=== PATIENT | female | born 1955 | race Caucasian/White ===

== ENCOUNTER 2017-05-07 18:22 | Observation (INO) ==
[2017-05-07] MEDS ORDERED: Ondansetron 4 MG/2 ML VIAL IVP ONE (18:42)
[2017-05-07] MEDS ORDERED: 0.9 % Sodium Chloride 1,000 ML IVC ONE (18:42)
[2017-05-07] MEDS ORDERED: *HR* Morphine 2 MG/ML SYRINGE IVP ONE (18:42)
--- NOTE | 2017-05-07 18:48 | Emergency Department Note ---
Disposition Clinical Impression: ALS (amyotrophic lateral sclerosis), Hyperbilirubinemia Acute appendicitis Qualifiers: Acute appendicitis type: unspecified acute appendicitis type Qualified Code(s) : K35.80 - Unspecified acute appendicitis Disposition: Admitted As Inpatient Condition: Fair Referrals: NONE,PCP [Non-Partnered Physician] - Forms: Work/School Release, ED Satisfaction Letter Time of Disposition: 19:50 Abdominal Pain HPI - General Chief Complaint: ED Abdominal Pain Stated Complaint: abd pain/abnormal CT Time Seen by Provider: 05/07/17 18:35 Source: patient Mode of arrival: ambulatory Limitations: no limitations Nursing Notes Reviewed: Yes Vital Signs Reviewed: Yes - History of Present Illness HPI Narrative: 61-year-old female history of ALS, presents with periumbilical and right lower quadrant pain for the last 4 days. The pain is 7 out of 10, periumbilical with radiation to the right lower quadrant. Associated with some nausea, she does have a feeding tube, but her last meal was a hamburger about 2-1/2 hours prior to ED arrival. Patient was actually evaluated in outpatient setting today, she saw her primary care physician Dr Rooney, ordered an outpatient CT scan with oral contrast, this showed an acute uncomplicated appendicitis. Patient denies blood thinners. Denies any chest pain shortness of breath has had intermittent chills but no fevers. Pt Subjective Complaint: abdominal pain Onset (ago): day(s) (4) Consistency: intermittent Location: periumbilical, RLQ Pain Severity: mild, moderate Pain Scale: 7 Quality: cramping, aching Radiation: none Improves with: nothing Worsens with: nothing Associated symptoms: Reports: nausea. Denies: vomiting, diarrhea, fever, chills , dysuria, hematemesis, hematochezia - Related Data Allergies Allergy/AdvReac Type Severity Reaction Status Date / Time No Known Allergies Allergy Verified 05/07/17 18:29 All systems ED: reviewed and negative except as stated. Review of Systems: As Per HPI Constitutional: Reports: as per HPI, chills. Denies: fever Eyes: Denies: eye pain ENT ED: Denies: ear pain Cardiovascular: Denies: chest pain Respiratory: Denies: cough Gastrointestinal: Reports: as per HPI, abdominal pain, nausea. Denies: vomiting , diarrhea, hematemesis, melena, hematochezia Genitourinary: Denies: urgency, dysuria Musculoskeletal: Denies: back pain Neurological: Denies: headache Abdominal Pain PMH - Past Medical History Medical history: Reports: cancer, kidney stones, other Female Surgical History: Reports: cholecystectomy, hysterectomy - Social History Smoking status: Never smoker Alcohol use: Reports: none Drug use: Reports: none Physical Exam Constitutional: NAD, vital signs reviewed and wnl Eyes: PERRLA, sclera anicteric Neck: normal inspection, neck is supple Resp: CTA bilaterally, no resp distress CV: RRR, no m/g/r GI: +PEG tube and left upper quadrant, mild abdominal tenderness to palpation periumbilical and right lower quadrant, positive McBurney's point tenderness, negative Rovsing sign. No guarding or rigidity. Back: normal inspection, Negative CVA bilaterally Neuro: A&O3, CNII-XII grossly intact, SOLOMON, slow speech 2/2 ALS MSK: no gross deformities, normal ROM UE and LE Skin: on limited exam, skin intact with no rashes or lesions - General Limitations: no limitations General appearance: in no apparent distress Course Course Narrative: 61-year-old female with right lower quadrant abdominal pain, CT scan positive for acute appendicitis, getting lab work, nothing by mouth, IV fluids antiemetics and analgesics, plan to consult surgery. - Reevaluation(s) Reevaluation #1: I spoke with Dr. Dodge, plan is to admit the patient to the surgical service, noted mild elevated total bilirubin, otherwise no elevation in leukocytosis, patient will have appendectomy tomorrow, nothing by mouth after midnight, started empirically on Zosyn antibiotic. Time: 19:46 Vital Signs Temperature 98 F 05/07/17 18:28 Pulse Rate 90 05/07/17 18:28 Respiratory Rate 18 05/07/17 18:28 Blood Pressure 134/86 05/07/17 18:28 O2 Sat by Pulse Oximetry 95 05/07/17 18:28 Temperature 98 F 05/07/17 18:28 Pulse Rate 87 05/07/17 19:56 Respiratory Rate 18 05/07/17 19:56 Blood Pressure 135/82 05/07/17 19:56 O2 Sat by Pulse Oximetry 92 05/07/17 19:56 Oxygen Delivery Oxygen Delivery Room Air Abdominal Pain - MDM Narrative Medical decision making narrative: 61-year-old female with history of ALS, presents with right lower quadrant pain , CT scan outpatient shows uncomplicated appendicitis, started on Zosyn, admitted to Dr. Dodge for definitive management, Patient hemodynamically stable at the time of ED disposition. - Differential Diagnosis Differential Diagnosis: Likely: acute appendicitis, diverticulitis, diverticulosis - Medical Records Medical records reviewed: Yes I reviewed the patient's medical records. - Lab Data Lab results reviewed: Yes I reviewed the patient's lab results. Lab results narrative: Lab Results 05/07/17 05/07/17 05/07/17 Range/Units 19:05 19:05 19:05 WBC 8.1 (4.3-11.1) K/mcL RBC 4.35 (3.82-4.97) M/mcL Hgb 12.8 (11.5-15.4) g/dL Hct 38.2 (35.3-44.9) % MCV 87.8 (83.0-100.0) fL MCH 29.4 (28.0-33.3) pg MCHC 33.5 (31.6-35.5) g/dL RDW 13.4 (11.5-14.5) % Plt Count 209 (140-400) K/mcL MPV 10.1 (9.4-12.4) fL Immature Gran % 0.5 (0-4) % Seg Neutrophils % 64.9 % Lymphocytes % 26.8 % Monocytes % 5.6 % Eosinophils % 2.0 % Basophils % 0.2 % Neutrophils # 5.2 (1.6-8.9) K/mcL Lymphocytes # 2.2 (0.6-4.6) K/mcL Monocytes # 0.5 (0.0-1.3) K/mcL Eosinophils # 0.2 (0.0-0.6) K/mcL Basophils # 0.0 (0.0-0.2) K/mcL PT 12.5 H (9.4-12.1) Seconds INR 1.2 Sodium 139 (136-145) mEq/L Potassium 3.8 (3.5-4.5) mEq/L Chloride 104 (98-109) mEq/L Carbon Dioxide 26 (19-29) mEq/L BUN 16 (7-20) mg/dL Creatinine 0.75 (0.57-1.11) mg/dL Est GFR ( Amer) > 60 (> 60) Est GFR (Non-Af Amer) > 60 (> 60) BUN/Creatinine Ratio 21 (6-26) Glucose 108 H (70-99) mg/dL Calculated Osmolality 290 (280-300) Calcium 9.7 (8.6-10.8) mg/dL Total Bilirubin 2.6 H (0.2-1.2) mg/dL Direct Bilirubin 0.8 H (0.0-0.5) mg/dL Indirect Bilirubin 1.8 H (0.0-1.2) mg/dL AST 21 (5-34) Units/L ALT 23 (0-55) Units/L Alkaline Phosphatase 119 (38-126) Units/L Serum Total Protein 7.6 (6.0-8.3) g/dL Albumin 3.8 (3.5-5.0) g/dL Globulin 3.8 H (2.4-3.5) g/dL Albumin/Globulin Ratio 1.0 L (1.1-2.2) Result diagrams: 05/07/17 19:05 05/07/17 19:05 Lab Results 05/07/17 05/07/17 05/07/17 Range/Units 19:05 19:05 19:05 WBC 8.1 (4.3-11.1) K/mcL RBC 4.35 (3.82-4.97) M/mcL Hgb 12.8 (11.5-15.4) g/dL Hct 38.2 (35.3-44.9) % MCV 87.8 (83.0-100.0) fL MCH 29.4 (28.0-33.3) pg MCHC 33.5 (31.6-35.5) g/dL RDW 13.4 (11.5-14.5) % Plt Count 209 (140-400) K/mcL MPV 10.1 (9.4-12.4) fL Immature Gran % 0.5 (0-4) % Seg Neutrophils % 64.9 % Lymphocytes % 26.8 % Monocytes % 5.6 % Eosinophils % 2.0 % Basophils % 0.2 % Neutrophils # 5.2 (1.6-8.9) K/mcL Lymphocytes # 2.2 (0.6-4.6) K/mcL Monocytes # 0.5 (0.0-1.3) K/mcL Eosinophils # 0.2 (0.0-0.6) K/mcL Basophils # 0.0 (0.0-0.2) K/mcL PT 12.5 H (9.4-12.1) Seconds INR 1.2 Sodium 139 (136-145) mEq/L Potassium 3.8 (3.5-4.5) mEq/L Chloride 104 (98-109) mEq/L Carbon Dioxide 26 (19-29) mEq/L BUN 16 (7-20) mg/dL Creatinine 0.75 (0.57-1.11) mg/dL Est GFR ( Amer) > 60 (> 60) Est GFR (Non-Af Amer) > 60 (> 60) BUN/Creatinine Ratio 21 (6-26) Glucose 108 H (70-99) mg/dL Calculated Osmolality 290 (280-300) Calcium 9.7 (8.6-10.8) mg/dL Total Bilirubin 2.6 H (0.2-1.2) mg/dL Direct Bilirubin 0.8 H (0.0-0.5) mg/dL Indirect Bilirubin 1.8 H (0.0-1.2) mg/dL AST 21 (5-34) Units/L ALT 23 (0-55) Units/L Alkaline Phosphatase 119 (38-126) Units/L Serum Total Protein 7.6 (6.0-8.3) g/dL Albumin 3.8 (3.5-5.0) g/dL Globulin 3.8 H (2.4-3.5) g/dL Albumin/Globulin Ratio 1.0 L (1.1-2.2) - Radiology Data Radiology results reviewed: Yes I reviewed the patient's radiology results. - EKG Data EKG attestation: Yes I reviewed and interpreted this EKG. EKG shows normal: sinus rhythm Rate: normal (84 bpm CO 168 QRS 88 QTC 4:[address] segment elevations or depressions.) [place]/QRS: normal Interpretation: normal EKG - Core Measures AMI Core Measures Followed: No Measure Exclusions: not indicated
[2017-05-07 19:17] LABS: Basophils % 0.2 %; Eosinophils # 0.2 K/mcL (0.0-0.6); Hematocrit 38.2 % (35.3-44.9); Hemoglobin 12.8 g/dL (11.5-15.4); Immature Granulocytes % 0.5 % (0-4); Lymphocytes # 2.2 K/mcL (0.6-4.6); Lymphocytes % 26.8 %; Mean Corpuscular HGB Conc 33.5 g/dL (31.6-35.5); Mean Corpuscular Hemoglobin 29.4 pg (28.0-33.3); Mean Corpuscular Volume 87.8 fL (83.0-100.0); Mean Platelet Volume 10.1 fL (9.4-12.4); Monocytes # 0.5 K/mcL (0.0-1.3); Monocytes % 5.6 %; Neutrophils # 5.2 K/mcL (1.6-8.9); Platelet Count 209 K/mcL (140-400); Red Blood Count 4.35 M/mcL (3.82-4.97); Red Cell Distribution Width 13.4 % (11.5-14.5); Segmented Neutrophils % 64.9 %
[2017-05-07 19:21] LABS: INR 1.2; Prothrombin Time 12.5 Seconds (9.4-12.1)
[2017-05-07 19:30] LABS: Alanine Aminotransferase 23 Units/L (0-55); Albumin 3.8 g/dL (3.5-5.0); Alkaline Phosphatase 119 Units/L (38-126); Aspartate Amino Transferase 21 Units/L (5-34); BUN/Creatinine Ratio 21 (6-26); Bilirubin,Direct 0.8 mg/dL (0.0-0.5); Bilirubin,Indirect 1.8 mg/dL (0.0-1.2); Blood Urea Nitrogen 16 mg/dL (7-20); Calcium 9.7 mg/dL (8.6-10.8); Carbon Dioxide 26 mEq/L (19-29); Chloride 104 mEq/L (98-109); Globulin 3.8 g/dL (2.4-3.5); Glucose 108 mg/dL (70-99); Osmolality,Calculated 290 (280-300); Potassium 3.8 mEq/L (3.5-4.5); Sodium 139 mEq/L (136-145); Total Protein 7.6 g/dL (6.0-8.3); eGFR For African Americans > 60 (> 60); eGFR For Non-African Americans > 60 (> 60)
[2017-05-07 19:31] LABS: Bilirubin,Total 2.6 mg/dL (0.2-1.2)
[2017-05-07] MEDS ORDERED: Piperacillin/Tazobactam 3.375 GM in D5% in Water (Mini-Bag+) 100 ML IVPB ONE (19:36)
[2017-05-07 20:04] LABS: Bilirubin,Urine Negative (Negative); Blood,Urine Large (Negative); Clarity,Urine Clear (Clear); Color,Urine Yellow (Yellow); Glucose,Urine (UA) Normal (Normal); Ketones,Urine Negative (Negative); Leukocyte Esterase,Urine Trace (Negative); Nitrite,Urine Negative (Negative); PH,Urine 5.5 pH Units (5.0-8.0); Protein,Urine Negative (Neg-Trace); Specific Gravity,Urine > 1.030 (1.010-1.025); Urobilinogen,Urine Normal (Normal)
[2017-05-07 20:06] LABS: Bacteria,Urine None Seen per hpf (None-Few); Hyaline Casts,Urine None Seen per lpf (None-Few); Squamous Epithelial Cell,Urine Moderate per lpf (None-Few)
[2017-05-07] MEDS ORDERED: Ondansetron 4 MG/2 ML VIAL IVP PRN (22:29)
[2017-05-07] MEDS ORDERED: Baclofen 10 MG TABLET PO PRN (22:37)
[2017-05-07] MEDS: 0.9 % Sodium Chloride 1,000 ML IVC SCH (23:08)
[2017-05-08] MEDS: Piperacillin/Tazobactam 3.375 GM in D5% in Water (Mini-Bag+) 100 ML IVPB SCH ×3 (04:02→20:13)
--- NOTE | 2017-05-08 07:07 | General Surg History&Physical ---
<TarunMichelleTen - Last Filed: 05/08/17 07:14> Date of Encounter: 05/08/17 Time of Encounter: 06:45 Assessment and Plan (1) Acute appendicitis Current Visit: Yes Status: Acute Imaging and clinical picture are consistent with acute appendicitis. Plan for OR this morning for laparoscopic appendectomy with possible open. Consent was signed. Risks and benefits were discussed. All questions were answered. Understanding was verified. Qualifiers: Acute appendicitis type: unspecified acute appendicitis type Qualified Code (s): K35.80 - Unspecified acute appendicitis History of Present Illness Chief complaint: abdominal pain HPI: Ms. Schwartz is a 61 year old female with PMH of ALS who presents with 3-4 days of abdominal pain. It initially started 2 weeks ago, lasting for 2-3 days before subsiding. It returned on Friday worse than before. She rates the pain as 7/10 in intensity, constant in timing, and "like a punch" in quality. She endorses no exacerbating or remitting factors. She has never had pain like this before. She admits to chills and nausea. She denies fever, anorexia, or a lack of bowel movements. She has had multiple surgeries in the past, including hysterectomy, cholecystectomy, and feeding tube placement. CT abd/pelv showed acute, uncomplicated appendicitis. Past Med Surg Social Fam HX - Past Medical History Medical history: cancer, kidney stones, other Psychiatric history: no psych history - Past Surgical History Surgical History: cholecystectomy, hysterectomy, orthopedic, other - Social History Smoking Status: Never smoker Smokeless Tobacco Status: No Alcohol use: none Drug use: none - Family History Mother Living Status: Still Living Hx Family Psychosocial Disorders: Yes (dementia) Father Living Status: Still Living Hx Family Respiratory Disorders: Yes (COPD) Medications and Allergies Baclofen [Lioresal] 10 mg PO HS PRN 05/07/17 [History] Docusate [Colace] 100 mg PO DAILY 05/07/17 [History] Metoprolol XL (24 HR) Succ [Toprol XL] 12.5 mg PO DAILY 05/07/17 [History] Oxybutynin [Ditropan] 5 mg PO BID 05/07/17 [History] Riluzole [Rilutek] 50 mg PO BID 05/07/17 [History] Allergies No Known Allergies Allergy (Verified 05/07/17 18:29) Review of Systems All systems PM: A 10-system review of systems was performed and is negative for pertinent findings except as documented above in the HPI. - Constitutional chills, no anorexia, no fever(s) - Gastrointestinal abdominal pain, nausea, no bloating, no vomiting General Surgery Exam Initial Vital Signs Temp Pulse Resp BP Pulse Ox 98 F 90 18 134/86 95 05/07/17 18:28 05/07/17 18:28 05/07/17 18:28 05/07/17 18:28 05/07/17 18:28 - General physical appearance well developed, well nourished, no distress, obese - Eyes normal ocular movement - ENT atraumatic, normocephalic - Neck trachea midline - Respiratory normal expansion, normal respiratory effort, clear to auscultation - Cardiovascular Cardiovascular exam: Present: RRR - Abdomen Abdomen general surgery: Present: soft, tender. Absent: bowel sounds present, distended, guarding, rebound, peritoneal Abdominal Tenderness: Present: RLQ - Neurologic Present: other (difficulty speaking secondary to ALS) - Musculoskeletal Present: normal posture - Psychiatric Psychiatric general surgery: Present: appropriate, memory intact Results - Labs 05/07/17 19:05 05/07/17 19:05 Abnormal lab results PT 12.5 Seconds (9.4-12.1) H 05/07/17 19:05 Glucose 108 mg/dL (70-99) H 05/07/17 19:05 Total Bilirubin 2.6 mg/dL (0.2-1.2) H 05/07/17 19:05 Direct Bilirubin 0.8 mg/dL (0.0-0.5) H 05/07/17 19:05 Indirect Bilirubin 1.8 mg/dL (0.0-1.2) H 05/07/17 19:05 Globulin 3.8 g/dL (2.4-3.5) H 05/07/17 19:05 Albumin/Globulin Ratio 1.0 (1.1-2.2) L 05/07/17 19:05 Ur Specific [place] > 1.030 (1.010-1.025) H 05/07/17 19:55 Urine Blood Large (Negative) H 05/07/17 19:55 Ur Leukocyte Esterase Trace (Negative) H 05/07/17 19:55 Urine Microscopic RBC 5-15 per hpf (0-3) H 05/07/17 19:55 Urine Microscopic WBC 5-15 per hpf (0-3) H 05/07/17 19:55 Ur Squamous Epith Cells Moderate per lpf (None-Few) H 05/07/17 19:55 Ur Culture Indicated? YES (NO) A 05/07/17 19:55 All other labs normal. - Imaging CT scan - abdomen: report reviewed (IMPRESSION: 1. Uncomplicated acute appendicitis. 2. Trace free fluid in the pelvis is likely reactive. 3. Indeterminate 1.0 cm x 0.9 cm hypodense lesion likely representing a complicated cyst in the interpolar region of the left kidney. Recommend further evaluation with renal protocol MRI on a nonemergent basis. D/T: 2016 15:01:33 / Igor Mantilla MD / Igor Mantilla MD Interpreting Provider: Igor Mantilla MD ), image reviewed CT scan - pelvis: report reviewed, image reviewed <Karlie Dodge - Last Filed: 05/08/17 07:36> Date of Encounter: 05/08/17 Time of Encounter: 07:28 Assessment and Plan (1) HTN (hypertension) Current Visit: Yes Status: Acute The assessment and plan as outlined above was discussed with the patient and/or family members who expressed understanding and agreement. All questions were answered. continue home medication, controlled Qualifiers: Hypertension type: essential hypertension Qualified Code(s): I10 - Essential (primary) hypertension (2) ALS (amyotrophic lateral sclerosis) Current Visit: Yes Status: Acute The assessment and plan as outlined above was discussed with the patient and/or family members who expressed understanding and agreement. All questions were answered. continue home medication discussed with patient that she may need to go to ICU intubated after surgery due to weakness until she regains strength to be extubated after surgery, she understands (3) Acute appendicitis Current Visit: Yes Status: Acute The assessment and plan as outlined above was discussed with the patient and/or family members who expressed understanding and agreement. All questions were answered. Qualifiers: Acute appendicitis type: unspecified acute appendicitis type Qualified Code (s): K35.80 - Unspecified acute appendicitis History of Present Illness HPI: Ms. Schwartz is a 61 year old female with medical history of ALS, hypertension and taccycardia. She began having mid abdominal pain this past friday (~4-5 days ago) which was initially dull. The pain has radiated and is now in her RLQ. The pain is sharp. SHe has had nausea but without emesis. She denies diarrhea or dysuria. No fever or night sweats but had chills. She presented to ED and and CT was done showing acute appendicitis, wbc 8.1. Past Med Surg Social Fam HX - Past Medical History Source: patient Medical history: hypertension, kidney stones, other (ALS) Psychiatric history: no psych history - Past Surgical History Surgical History: cholecystectomy, hysterectomy, other (PEG) Review of Systems All systems PM: A 10-system review of systems was performed and is negative for pertinent findings except as documented above in the HPI. General Surgery Exam Initial Vital Signs Temp Pulse Resp BP Pulse Ox 98 F 90 18 134/86 95 05/07/17 18:28 05/07/17 18:28 05/07/17 18:28 05/07/17 18:28 05/07/17 18:28 - General physical appearance well developed, well nourished, no distress, other (generalized weakness due to ALS) - Eyes PERRL, normal ocular movement - ENT atraumatic, normocephalic - Neck trachea midline - Respiratory normal expansion, clear to auscultation - Cardiovascular Cardiovascular exam: Present: RRR, no murmurs/rubs/gallops - Abdomen Abdomen general surgery: Present: bowel sounds present, soft, tender. Absent: guarding, rebound Abdominal Tenderness: Present: RLQ - Integumentary Integumentary general surgery: Present: warm and dry - Neurologic Present: CN 2-12 grossly intact, other - Musculoskeletal Present: other (generalized weakness) - Psychiatric Psychiatric general surgery: Present: A&Ox3 Results - Labs 05/07/17 19:05 05/07/17 19:05 Abnormal lab results PT 12.5 Seconds (9.4-12.1) H 05/07/17 19:05 Glucose 108 mg/dL (70-99) H 05/07/17 19:05 Total Bilirubin 2.6 mg/dL (0.2-1.2) H 05/07/17 19:05 Direct Bilirubin 0.8 mg/dL (0.0-0.5) H 05/07/17 19:05 Indirect Bilirubin 1.8 mg/dL (0.0-1.2) H 05/07/17 19:05 Globulin 3.8 g/dL (2.4-3.5) H 05/07/17 19:05 Albumin/Globulin Ratio 1.0 (1.1-2.2) L 05/07/17 19:05 Ur Specific [place] > 1.030 (1.010-1.025) H 05/07/17 19:55 Urine Blood Large (Negative) H 05/07/17 19:55 Ur Leukocyte Esterase Trace (Negative) H 05/07/17 19:55 Urine Microscopic RBC 5-15 per hpf (0-3) H 05/07/17 19:55 Urine Microscopic WBC 5-15 per hpf (0-3) H 05/07/17 19:55 Ur Squamous Epith Cells Moderate per lpf (None-Few) H 05/07/17 19:55 Ur Culture Indicated? YES (NO) A 05/07/17 19:55 All other labs normal. - Imaging CT scan - abdomen: report reviewed, image reviewed CT scan - pelvis: report reviewed, image reviewed - Attending Attestation I examined this patient and my medical decision-making was reviewed with the Resident Physician. I agree with the documented findings, disposition and treatment plan as described except to the extent set forth below. acute appendicitis
--- NOTE | 2017-05-08 07:38 | Anesthesia Evaluation PreOp ---
Date of Encounter: 05/08/17 Time of Encounter: 07:36 - Past History Planned Operation: Lap appendectomy Cardiac History: HTN Pulmonary History: GABE Dx (Bipap) TELEPHONE CLERK TELEGRAPH OFFICE History: Other (ALS - weakness involving hands, feets, and bulbar muscles) Other Medical History: Denies Any Significant HX Anesthesia History: No Prior Anesthetic Complications Alcohol Use: none Drug use: none Medications and Allergies Baclofen [Lioresal] 10 mg PO HS PRN 05/07/17 [History] Docusate [Colace] 100 mg PO DAILY 05/07/17 [History] Metoprolol XL (24 HR) Succ [Toprol XL] 12.5 mg PO DAILY 05/07/17 [History] Oxybutynin [Ditropan] 5 mg PO BID 05/07/17 [History] Riluzole [Rilutek] 50 mg PO BID 05/07/17 [History] Allergies No Known Allergies Allergy (Verified 05/07/17 18:29) - Meds/Allergy Pre-op Review Medications Reviewed: Yes Allergies Reviewed: Yes Beta Blockers on Current Med List: Yes Anesthesia Results - Labs 05/07/17 19:05 05/07/17 19:05 Anesthesia Exam Last Vital Signs Temp 97.6 F 05/08/17 03:51 Pulse 78 05/08/17 03:51 Resp 15 05/08/17 03:51 BP 98/61 05/08/17 03:51 Pulse Ox 92 05/08/17 03:51 Weight: 80 kg NPO (# of Hours): >> 8 hrs - HEENT Pupil (Motor): Pupils equal, EOMI Mallampati: III Teeth: Poor dentition, Prosthesis Denture Type: Lower: Partial Oral Opening: Greater than 3 - TELEPHONE CLERK TELEGRAPH OFFICE LOC: Oriented TELEPHONE CLERK TELEGRAPH OFFICE Motor: Normal RUE, Normal LUE, Normal RLE, Normal LLE, Normal Face - Cardiac Rhythm: Regular Murmur: None - Pulmonary Breath Sounds: bilateral Clear Respiratory Effort: Symmetrical Anesthesia Assess/Plan ASA Score: 3 Modified Mehdi Scale for Level of Consciousness: Cooperative, oriented, and tranquil Anesthetic Plan: General, Precautions (avoid paralytics; high risk of post-op ventilation and intubation) Monitoring Plan: Standard Monitors Recovery Plan: ICU (possible due to post-op ventillatory failure (high risk due to ALS))
[2017-05-08] MEDS ORDERED: Naloxone 0.4 MG/ML INJ IVP PRN (07:51)
[2017-05-08] MEDS ORDERED: *HR* Metoprolol 5 MG/5 ML VIAL IVP PRN (07:51)
[2017-05-08] MEDS: Metoprolol XL (24 HR) Succ 25 MG TAB.ER.24H PO SCH (09:04)
[2017-05-08] MEDS: Pantoprazole 40 MG VIAL IVP SCH (09:09)
--- NOTE | 2017-05-08 15:33 | Electrocardiograph Report ---
[place] [id number] Test Date: 2017-05-07 Pat Name: Halie Schwartz Department: 102 Room: 3B Gender: F Mine Deputy: Ana : 1955 Requested By: Tay Joseph Order Number: [id number] Reading MD: Jonathan Marrero Measurements Intervals [place] Rate: 84 P: 46 MO: 168 QRS: -17 QRSD: 88 T: 57 QT: 374 QTc: 415 Interpretive Statements SINUS RHYTHM LOW QRS VOLTAGE IN PRECORDIAL LEADS Electronically Signed On 05-08-2017 15:31:50 EDT by Jonathan Marrero
[2017-05-08] MEDS: 0.9 % Sodium Chloride 1,000 ML IVC SCH (19:59)
[2017-05-08] MEDS: *HR* Morphine 2 MG/ML SYRINGE IVP PRN (20:06)
[2017-05-09] MEDS: Piperacillin/Tazobactam 3.375 GM in D5% in Water (Mini-Bag+) 100 ML IVPB SCH ×3 (04:09→22:17)
[2017-05-09 04:27] LABS: Basophils % 0.2 %; Eosinophils # 0.1 K/mcL (0.0-0.6); Eosinophils % 2.7 %; Hematocrit 32.4 % (35.3-44.9); Immature Granulocytes % 0.2 % (0-4); Lymphocytes # 1.7 K/mcL (0.6-4.6); Lymphocytes % 36.9 %; Mean Corpuscular HGB Conc 33.3 g/dL (31.6-35.5); Mean Corpuscular Hemoglobin 30.5 pg (28.0-33.3); Mean Corpuscular Volume 91.5 fL (83.0-100.0); Mean Platelet Volume 10.8 fL (9.4-12.4); Monocytes # 0.4 K/mcL (0.0-1.3); Monocytes % 8.6 %; Neutrophils # 2.3 K/mcL (1.6-8.9); Platelet Count 134 K/mcL (140-400); Red Blood Count 3.54 M/mcL (3.82-4.97); Red Cell Distribution Width 13.6 % (11.5-14.5); Segmented Neutrophils % 51.4 %
[2017-05-09 04:29] LABS: Hemoglobin 10.8 g/dL (11.5-15.4)
[2017-05-09 04:51] LABS: BUN/Creatinine Ratio 17 (6-26); Blood Urea Nitrogen 11 mg/dL (7-20); Calcium 8.6 mg/dL (8.6-10.8); Carbon Dioxide 25 mEq/L (19-29); Chloride 109 mEq/L (98-109); Glucose 83 mg/dL (70-99); Osmolality,Calculated 289 (280-300); Sodium 140 mEq/L (136-145); eGFR For African Americans > 60 (> 60); eGFR For Non-African Americans > 60 (> 60)
[2017-05-09] MEDS: 0.9 % Sodium Chloride 1,000 ML IVC SCH ×3 (06:16→17:48)
[2017-05-09] MEDS: Metoprolol XL (24 HR) Succ 25 MG TAB.ER.24H PO SCH (10:30)
[2017-05-09] MEDS: Pantoprazole 40 MG VIAL IVP SCH (10:35)
[2017-05-09] MEDS: *HR* Morphine 2 MG/ML SYRINGE IVP PRN ×2 (10:35→17:48)
--- NOTE | 2017-05-09 10:40 | Event Note ---
<Ten Mcneil - Last Filed: 05/09/17 10:35> Date of Encounter: 05/09/17 Time of Encounter: 07:15 Original plan was for antibiotics and observation on this patient. When seen this morning, the patient had changed her mind and wanted appendectomy due to persistent abdominal pain and nausea. She is going to the OR today, with plan to go to ICU due to ALS-related breathing problems after anesthesia, as she is expected to be difficult to remove from the ventilator. <Karlie Dodge - Last Filed: 05/11/17 08:28> Date of Encounter: 05/09/17 Anesthesia has been concerned about patients potential respiratory weakness after general anesthesia and a discussion was previously had with patient regarding surgery versus treating appendicitis with antibiotics alone and no surgery. She previously decided she would like to resolve her appendicitis with antibiotics and forgo surgery if possible but overnight she had continued RLQ pain and nausea and this morning changed her mind and requested surgery. Will plan laparoscopic appendectomy, possible open, risks and benefits discussed and she wishes to proceed. Will place patient in ICU after surgery in case anesthesia doesnt feel she is strong enough immediately after surgery from a respiratory standpoint and for observation. Continue abx, pain control, ivf hydration, npo, antiemetics. I examined this patient and my medical decision-making was reviewed with the Resident Physician. I agree with the documented findings, disposition and treatment plan as described except to the extent set forth below.
[2017-05-09] MEDS ORDERED: *HR* FentaNYL (PF) 100 MCG/2 ML VIAL ONE ×3 (13:56→15:04)
[2017-05-09] MEDS ORDERED: *HR* Propofol 200 MG/20 ML VIAL IVP ONE ×2 (13:57→14:13)
[2017-05-09] MEDS ORDERED: *HR* Rocuronium Bromide 50 MG/5 ML VIAL ONE (13:58)
[2017-05-09] MEDS ORDERED: Lidocaine -MPF 2% 2 ML VIAL ONE (13:58)
[2017-05-09] MEDS ORDERED: *HR* Phenylephrine 10 MG/ML VIAL ONE (13:59)
[2017-05-09] MEDS ORDERED: Lidocaine -MPF 4% 5 ML AMPUL ONE (14:12)
[2017-05-09] MEDS ORDERED: EPHEDrine 50 MG/ML VIAL ONE (14:14)
[2017-05-09] MEDS ORDERED: Ondansetron 4 MG/2 ML VIAL ONE (14:56)
[2017-05-09] MEDS ORDERED: Dexamethasone 4 MG/ML VIAL ONE (14:56)
[2017-05-09] MEDS ORDERED: *HR* HYDROmorphone 2 MG/ML SYRINGE ONE (15:53)
--- NOTE | 2017-05-09 15:57 | Operative Note ---
Date of procedure: 05/09/17 Pre-op diagnosis: acute appendicitis Post-op diagnosis: same Procedure: Laparoscopic appendectomy Complications: none immediate Anesthesia: GETA, local Local Anesthetics: 0.5% Sensorcaine HCL SubQ (cc) Surgeon: Karlie Dodge Estimated blood loss (cc): 5 Specimen: appendix Condition: stable Disposition: PACU Procedure in Detail: The patient was brought into the operating suite and placed supine on the operating table. Sign-in was performed and everyone was in agreement. Anesthesia was induced and patient was endotracheally intubated by anesthesia without incident. An OG tube was placed by anesthesia. The abdomen was prepped and draped in the usual sterile fashion. A timeout was performed and again everyone was in agreement. A supraumbilical incision was made through the skin and the subcutaneous tissue with an 11 blade. Towel clamps were placed on either side of the umbilicus for retraction. S-retractors were used to dissect down to the anterior abdominal wall linea alba fascia. A Veress needle was placed into this incision and a water drop test confirmed placement and the abdomen was insufflated. We then entered the abdomen with the 5 mm 0 degree laparoscope on a 5 mm X-ashwini trocar. The area under entry was visualized and there was no bleeding and no apparent bowel injury. We placed a suprapubic 5 mm port under direct visualization after first incising the skin with an 11 blade. The laparoscope was placed through this and we exchanged the supraumbilical port for a 12 mm port under direct visualization. We then placed another 5 mm port in the left lower quadrant position under direct visualization after first incising the skin with an 11 blade. The patient was placed in slight Trendelenburg left side down position. The cecum was located as was the appendix. The appendix was grasped and retracted anteriorly and caudally with a laparoscopic Shannan. A [place] was used to dissect between the mesoappendix and the appendix at the base of the cecum. The mesoappendix was transected with a laparoscopic flex-ex ETS stapler using a white load. The appendix was transected at the base of the cecum with the same stapler utilizing a white load. The appendix was placed in a laparoscopic Endo Catch bag and removed via the supraumbilical incision site. Both staple lines were evaluated and there was no bleeding and both staple lines were intact. The area was irrigated with sterile saline which was then suctioned free from the abdomen. The insufflation was suctioned free from the abdomen and all trochars removed. We closed the abdominal wall at the supraumbilical incision site with an 0 Vicryl [id number] stitch. A 30 cc of 0.5% Marcaine was injected subcutaneously at the 3 port sites. The skin at the two 5 mm port sites was closed with 4-0 Monocryl interrupted subcuticular stitches. The skin at the supraumbilical incision site was closed with a 4-0 Monocryl running subcuticular stitch. Steri-Strips were applied to the wounds. The patient was extubated in the OR and tolerated the procedure well and was taken to PACU after all lap and instrument counts were correct at the end of the case.
[2017-05-09] MEDS ORDERED: *HR* Metoprolol 5 MG/5 ML VIAL IVP PRN (16:29)
[2017-05-09] MEDS ORDERED: *HR* HYDROcodone/Acet 5/325 mg TABLET PO PRN (16:29)
[2017-05-09] MEDS ORDERED: Naloxone 0.4 MG/ML INJ IVP PRN (16:29)
[2017-05-09] MEDS ORDERED: Baclofen 10 MG TABLET PO PRN (16:29)
[2017-05-09] MEDS ORDERED: Ondansetron 4 MG/2 ML VIAL IVP PRN (16:29)
[2017-05-09] MEDS ORDERED: *HR* Morphine 2 MG/ML SYRINGE ONE (16:40)
[2017-05-09] MEDS ORDERED: 0.9 % Sodium Chloride 1,000 ML ONE (16:40)
[2017-05-09] MEDS: Nystatin POWDER 30 GM BOTTLE TP SCH (20:30)
[2017-05-10] MEDS: 0.9 % Sodium Chloride 1,000 ML IVC SCH (03:48)
[2017-05-10] MEDS: Piperacillin/Tazobactam 3.375 GM in D5% in Water (Mini-Bag+) 100 ML IVPB SCH ×2 (03:52→12:10)
[2017-05-10] MEDS: *HR* Morphine 2 MG/ML SYRINGE IVP PRN (04:12)
[2017-05-10 06:33] LABS: Basophils % 0.2 %; Eosinophils % 0.2 %; Hematocrit 31.9 % (35.3-44.9); Hemoglobin 10.3 g/dL (11.5-15.4); Immature Granulocytes % 0.4 % (0-4); Lymphocytes # 0.7 K/mcL (0.6-4.6); Mean Corpuscular HGB Conc 32.3 g/dL (31.6-35.5); Mean Corpuscular Hemoglobin 29.9 pg (28.0-33.3); Mean Corpuscular Volume 92.7 fL (83.0-100.0); Mean Platelet Volume 10.7 fL (9.4-12.4); Monocytes # 0.2 K/mcL (0.0-1.3); Monocytes % 4.7 %; Neutrophils # 3.7 K/mcL (1.6-8.9); Platelet Count 134 K/mcL (140-400); Red Blood Count 3.44 M/mcL (3.82-4.97); Red Cell Distribution Width 13.2 % (11.5-14.5); Segmented Neutrophils % 79.5 %
[2017-05-10] MEDS: Nystatin POWDER 30 GM BOTTLE TP SCH (08:21)
[2017-05-10] MEDS ORDERED: Pantoprazole 40 MG VIAL IVP SCH (09:00)
[2017-05-10] MEDS ORDERED: Metoprolol XL (24 HR) Succ 25 MG TAB.ER.24H PO SCH (09:00)
[2017-05-10 12:08] VITALS: BP 116/74
--- NOTE | 2017-05-10 12:35 | Discharge Summary ---
Date of Encounter: 05/10/17 Time of Encounter: 12:00 - Discharge Diagnosis (1) Acute appendicitis Priority: Primary Status: Resolved Qualifiers: Acute appendicitis type: unspecified acute appendicitis type Qualified Code (s): K35.80 - Unspecified acute appendicitis (2) ALS (amyotrophic lateral sclerosis) Priority: Secondary Status: Chronic (3) HTN (hypertension) Priority: Secondary Status: Chronic Qualifiers: Hypertension type: essential hypertension Qualified Code(s): I10 - Essential (primary) hypertension (4) Hyperbilirubinemia Priority: Secondary Status: Chronic - Discharge Medications Prescriptions: Acetaminophen [Tylenol] 500 mg PO Q6HR PRN #50 tablet PRN Reason: Pain Ibuprofen [Motrin] 600 mg PO Q8HR PRN #40 tab PRN Reason: Pain Home Medications: Baclofen [Lioresal] 10 mg PO HS PRN 05/07/17 [History] Docusate [Colace] 100 mg PO DAILY 05/07/17 [History] Metoprolol XL (24 HR) Succ [Toprol Xl] 12.5 mg PO DAILY 05/07/17 [History] Oxybutynin [Ditropan] 5 mg PO BID 05/07/17 [History] Riluzole [Rilutek] 50 mg PO BID 05/07/17 [History] Acetaminophen [Tylenol] 500 mg PO Q6HR PRN #50 tablet 05/10/17 [Rx] Ibuprofen [Motrin] 600 mg PO Q8HR PRN #40 tab 05/10/17 [Rx] Allergies/Adverse Reactions: Allergies No Known Allergies Allergy (Verified 05/07/17 18:29) General Surgery Exam Initial Vital Signs Temp Pulse Resp BP Pulse Ox 98 F 90 18 134/86 95 05/07/17 18:28 05/07/17 18:28 05/07/17 18:28 05/07/17 18:28 05/07/17 18:28 - General physical appearance well developed, well nourished, no distress - Eyes normal ocular movement - ENT normal mucosa, atraumatic, normocephalic - Neck trachea midline - Respiratory normal respiratory effort, clear to auscultation - Cardiovascular Cardiovascular exam: Present: RRR - Abdomen Abdomen general surgery: Present: bowel sounds present, soft, tender (Minimal, expected tenderness) - Incision Incision: Present: clean and dry, intact - Integumentary Integumentary general surgery: Present: warm and dry - Neurologic Present: CN 2-12 grossly intact - Psychiatric Psychiatric general surgery: Present: appropriate, oriented to person, oriented to place, oriented to time, speech is normal, memory intact Date of admission: 05/07/17 20:15 Primary care physician: Barron Zimmerman, Consults: 05/08/17 07:51 Consult to Lead Java J2Ee Developer [CONS] Routine Reason for SW Consult: discharge planning 05/10/17 09:20 Consult to Physical Therapy [CONS] Routine Comment: Evaluate, develop and implement POC Reason for Consult: ALS, recent surgery OT [Consult to Occupational Therapy] [CONS] Routine Comment: Evaluate, develop and implement POC Reason for Consult: ALS, recent surgery Discharging clinician: Lonnie Lewis ([facility]) Anticipated date of discharge: 05/10/17 - Patient Status Disposition: Home, Self-Care Condition: Good Functional capacity at discharge: independent ambulation Overall status at discharge: patient is progressing back to baseline - Discharge Instructions Follow Up With: Barron Zimmerman DO [Primary Care Provider] - Karlie Dodge MD [Partnered Physician] - (2 weeks) Additional Instructions: #1 may shower 05/10/17, no tub bath for 2 weeks #2 wash incisions with soap and water and pat dry daily #3 no lifting, pushing, pulling more than 15 pounds for the next 2 weeks #4 no driving until off narcotics for 24 hours and able to safely react in the car #5 may climb stairs - Diet and Activity Activity: increase activity as tolerated Diet: advance to your usual diet - Hospital Course Hospital course: Ms. Schwartz is a 61 year old female admitted to the hospital with abdominal pain. She was found to have acute appendicitis. She was started on IV antibiotics. She was then taken to the operating room for laparoscopic appendectomy with Dr. Dodge which was uncomplicated. On postoperative day #1 she is tolerating a diet without nausea or vomiting, and her vital signs are stable she is afebrile, her pain is well-controlled, and she is voiding and inability without difficulty. We will begin discharge planning to home and plan for outpatient follow-up in the next 10-14 days. - Time Spent with Patient Total time spent providing and/or coordinating discharge services: Less than 30 minutes Labs on day of discharge: Labs from last 24 hours 05/10/17 05/09/17 05:24 16:02 WBC 4.7 RBC 3.44 L Hgb 10.3 L Hct 31.9 L MCV 92.7 MCH 29.9 MCHC 32.3 RDW 13.2 Plt Count 134 L MPV 10.7 Immature Gran % 0.4 Seg Neutrophils % 79.5 Lymphocytes % 15.0 Monocytes % 4.7 Eosinophils % 0.2 Basophils % 0.2 Neutrophils # 3.7 Lymphocytes # 0.7 Monocytes # 0.2 Eosinophils # 0.0 Basophils # 0.0 POC Glucose 100 H - Attending Attestation For this encounter, I have reviewed the PUBLIC DEFENDER or PA documentation, treatment plan, and medical decision making; and I have had face to face time with this patient.
== END 2017-05-10 14:28 | disposition home or self-care (01) ==
LOC: EMEROO 18:22 → 3BNU 18:22 → ICNU 05-09 15:31
PROVIDERS: ADMIT Surgery; ATTEND Surgery

== ENCOUNTER 2018-10-03 11:32 | Observation (INO) ==
[2018-10-03 12:40] LABS: Basophils % 0.7 %; Eosinophils # 0.3 K/mcL (0.0-0.6); Eosinophils % 4.8 %; Hematocrit 39.7 % (35.3-44.9); Hemoglobin 13.1 g/dL (11.5-15.4); Immature Granulocytes % 0.2 % (0-4); Lymphocytes # 1.7 K/mcL (0.6-4.6); Lymphocytes % 31.7 %; Mean Corpuscular Volume 91.1 fL (83.0-100.0); Mean Platelet Volume 10.5 fL (9.4-12.4); Monocytes # 0.4 K/mcL (0.0-1.3); Monocytes % 6.9 %; Platelet Count 172 K/mcL (140-400); Red Blood Count 4.36 M/mcL (3.82-4.97); Red Cell Distribution Width 13.6 % (11.5-14.5); Segmented Neutrophils % 55.7 %
[2018-10-03 13:02] LABS: Troponin I 0.03 ng/mL (< 0.04)
[2018-10-03 13:03] LABS: BUN/Creatinine Ratio 35 (6-26); Blood Urea Nitrogen 19 mg/dL (8-23); Calcium 9.2 mg/dL (8.6-10.3); Carbon Dioxide 23 mEq/L (23-29); Chloride 105 mEq/L (98-107); Glucose 89 mg/dL (70-105); Magnesium 2.1 mg/dL (1.6-2.6); Osmolality,Calculated 288 (280-300); Potassium 4.1 mEq/L (3.5-5.1); Sodium 138 mEq/L (136-145); eGFR For Non-African Americans > 60 (> 60)
[2018-10-03 13:16] LABS: Thyroid Stimulating Hormone 3.214 mcIU/mL (0.340-5.600)
[2018-10-03] MEDS ORDERED: Nitroglycerin 0.4 MG TAB.SUBL SL STA (13:18)
[2018-10-03] MEDS ORDERED: Aspirin 325 MG TABLET PO STA (13:19)
--- NOTE | 2018-10-03 13:23 | Emergency Department Note ---
Disposition Clinical Impression: Chest pain, ALS (amyotrophic lateral sclerosis) Disposition: Admitted As Inpatient Condition: Good General Adult HPI - General Chief complaint: ED Chest Pain Stated complaint: CP x2wks Time Seen by Provider: 10/03/18 11:38 Source: patient Limitations: no limitations - History of Present Illness Pain Scale: 8 - Related Data Home Medications Medication Instructions Recorded Confirmed RX: Docusate [Colace] 100 mg PO DAILY PRN 05/07/17 10/03/18 RX: Metoprolol XL (24 HR) Succ 12.5 mg PO DAILY 05/07/17 10/03/18 [Toprol Xl] RX: Oxybutynin [Ditropan] 5 mg PO TID 05/07/17 10/03/18 RX: Riluzole [Rilutek] 50 mg PO BID 05/07/17 10/03/18 Previous Rx's Medication Instructions Recorded Acetaminophen [Tylenol] 500 mg PO Q6HR PRN #50 tablet 05/10/17 RX: Ibuprofen [Motrin] 600 mg PO Q8HR PRN #40 tab 05/10/17 Allergies Allergy/AdvReac Type Severity Reaction Status Date / Time No Known Allergies Allergy Verified 05/07/17 18:29 Past Medical History - Past Medical History Medical history: Reports: hypertension, kidney stones, other Surgical history: Reports: cholecystectomy, hysterectomy, other (PEG) Psychiatric history: Reports: no psych history - Social History Smoking Status: Never smoker Smokeless Tobacco Status: No Alcohol use: Reports: none Drug use: Reports: none Physical Exam - General Limitations: no limitations General appearance: alert Course Vital Signs Temperature 97.7 F 10/03/18 11:41 Pulse Rate 85 10/03/18 11:41 Respiratory Rate 20 10/03/18 11:41 Blood Pressure 108/85 10/03/18 11:41 O2 Sat by Pulse Oximetry 98 10/03/18 11:41 Temperature 97.5 F L 10/03/18 18:37 Pulse Rate 75 10/03/18 18:37 Respiratory Rate 16 10/03/18 18:37 Blood Pressure 94/67 10/03/18 18:37 O2 Sat by Pulse Oximetry 94 10/03/18 18:37 Oxygen Delivery Oxygen Delivery Room Air Medical Decision Making - [facility] Narrative Medical decision making narrative: Chest X-Ray 10/03/18 11:55 IMPRESSION: No acute process. D/ / Igor Boykin MD / Igor Boykin MD Interpreting Provider: Igor Boykin MD 1320 hrs.: Waiting nitroglycerin trial and results and then discuss disposition. 1400 hrs.: Nitroglycerin did improve her pain. But also did drop her blood pressure and she does not want to try anymore. She did get aspirin here. Her troponin is 0.3 which is normal but not negative. Return to talk with her about coming in the hospital for further workup and disposition. She is in agreement this plan. - Lab Data Result diagrams: 10/03/18 12:12 10/03/18 12:12 Lab Results 10/03/18 10/03/18 10/03/18 Range/Units 12:12 12:12 12:12 WBC 5.4 (4.3-11.1) K/mcL RBC 4.36 (3.82-4.97) M/mcL Hgb 13.1 (11.5-15.4) g/dL Hct 39.7 (35.3-44.9) % MCV 91.1 (83.0-100.0) fL MCH 30.0 (28.0-33.3) pg MCHC 33.0 (31.6-35.5) g/dL RDW 13.6 (11.5-14.5) % Plt Count 172 (140-400) K/mcL MPV 10.5 (9.4-12.4) fL Immature Gran % 0.2 (0-4) % Seg Neutrophils % 55.7 % Lymphocytes % 31.7 % Monocytes % 6.9 % Eosinophils % 4.8 % Basophils % 0.7 % Neutrophils # 3.0 (1.6-8.9) K/mcL Lymphocytes # 1.7 (0.6-4.6) K/mcL Monocytes # 0.4 (0.0-1.3) K/mcL Eosinophils # 0.3 (0.0-0.6) K/mcL Basophils # 0.0 (0.0-0.2) K/mcL APTT 35.7 (26.0-36.0) Seconds Sodium 138 (136-145) mEq/L Potassium 4.1 (3.5-5.1) mEq/L Chloride 105 (98-107) mEq/L Carbon Dioxide 23 (23-29) mEq/L BUN 19 (8-23) mg/dL Creatinine 0.54 L (0.60-1.20) mg/dL Est GFR ( Amer) > 60 (> 60) Est GFR (Non-Af Amer) > 60 (> 60) BUN/Creatinine Ratio 35 H (6-26) Glucose 89 (70-105) mg/dL Calculated Osmolality 288 (280-300) Calcium 9.2 (8.6-10.3) mg/dL Magnesium 2.1 (1.6-2.6) mg/dL Troponin I 0.03 (< 0.04) ng/mL TSH 3.214 (0.340-5.600) mcIU/mL Attestation Statement - Attestation Attestation: This documentation is done with the assistance of Dragon dictation. Despite efforts made to ensure accuracy, there may be inaccuracies in internet sales consultant or spelling and typographical errors. I examined this patient and my medical decision-making was reviewed with the Resident Physician. I agree with the documented findings, disposition and treatment plan as described except to the extent set forth below. Patient seen and evaluated on arrival today by Dr. riley and myself, I agree with her evaluation and management plan, supervised care the patient's stay. Patient presents today with chest pain it has been intermittently going on for 2 weeks. No history of cardiac disease except for atrial fibrillation. This controlled the beta osman. She also has ALS. She says she does not think her pain is anything do that. She is getting a cardiac workup and then reassess.
--- NOTE | 2018-10-03 13:24 | Emergency Department Note ---
Disposition Clinical Impression: ALS (amyotrophic lateral sclerosis) Chest pain Qualifiers: Chest pain type: other chest pain Qualified Code(s): R07.89 - Other chest pain Disposition: Admitted As Inpatient Condition: Good Referrals: Barron Zimmerman DO [Primary Care Provider] - Forms: ED Satisfaction Letter Time of Disposition: 15:15 Chest Pain HPI - General Chief Complaint: ED Chest Pain Stated Complaint: CP x2wks Time Seen by Provider: 10/03/18 11:38 Source: patient Limitations: no limitations Vital Signs Reviewed: Yes Nursing Notes Reviewed: Yes - History of Present Illness HPI Narrative: 62-year-old female with history of ALS who presents the emergency department wit h complaints of chest pain. She states the pain has been ongoing but intermittent over the past 2 weeks. Yesterday she experienced a significant worsening of her pain so painful that she fell over to the floor. During her episode of pain she developed diaphoresis and shortness of breath. The pain continues and she describes it as a pressure in the center for chest. It does not radiate. She has not found anything to alleviate or worsen her symptoms. She does have a history of GERD but denies this feeling similar. Otherwise does have dysphasia. She denies any fever, chills, nausea, vomiting, diarrhea, dysuria, hematuria, abdominal pain, back pain, visual changes. She is otherwise very active and able to walk with a cane without problem. Severity scale (1-10): 8 - Related Data Home Medications Medication Instructions Recorded Confirmed Docusate [Colace] 100 mg PO DAILY 05/07/17 05/07/17 Metoprolol XL (24 HR) Succ [Toprol 12.5 mg PO DAILY 05/07/17 05/07/17 Xl] Oxybutynin [Ditropan] 5 mg PO BID 05/07/17 05/07/17 Riluzole [Rilutek] 50 mg PO BID 05/07/17 05/07/17 Previous Rx's Medication Instructions Recorded Acetaminophen [Tylenol] 500 mg PO Q6HR PRN #50 tablet 05/10/17 Ibuprofen [Motrin] 600 mg PO Q8HR PRN #40 tab 05/10/17 Allergies Allergy/AdvReac Type Severity Reaction Status Date / Time No Known Allergies Allergy Verified 05/07/17 18:29 All systems ED: reviewed and negative except as stated. Review of Systems: As Per HPI Constitutional: Denies: fever, chills, weakness Eyes: Denies: eye pain, eye discharge Cardiovascular: Reports: chest pain, dyspnea on exertion. Denies: palpitations, orthopnea, edema, syncope Respiratory: Denies: cough, dyspnea, wheezes Gastrointestinal: Reports: nausea. Denies: abdominal pain, vomiting, diarrhea Genitourinary: Denies: urgency, dysuria Musculoskeletal: Denies: back pain, neck pain Integumentary: Denies: rash, abrasion Neurological: Denies: headache, weakness, numbness, paresthesias Psychiatric: Denies: anxiety, depression, suicidal thoughts, homicidal thoughts Endocrine: Denies: fatigue, heat or cold intolerance Chest Pain PMH - Past Medical History Medical history: Reports: hypertension, kidney stones, other (ALS) Surgical history: Reports: cholecystectomy, hysterectomy, other (PEG) Psychiatric history: Reports: no psych history - Social History Smoking Status: Never smoker Alcohol use: Reports: none Drug use: Reports: none Physical Exam - General Limitations: no limitations General appearance: alert - Head Head exam: atraumatic, normocephalic - Eye Eye exam: Present: normal appearance, PERRL - ENT ENT exam: normal exam, normal oropharynx, mucous membranes moist - Neck Neck exam: Present: normal inspection, full ROM - Chest Chest inspection: Present: normal inspection, symmetric chest wall rise. Absent: tenderness - Respiratory Respiratory exam: Present: normal lung sounds bilaterally. Absent: respiratory distress, wheezes, stridor, accessory muscle use - Cardiovascular Cardiovascular exam: Present: regular rate, normal rhythm, normal heart sounds - Abdominal Exam Abdominal exam: Present: soft, Non-Tender, normal bowel sounds, other (G tube in place). Absent: distention, guarding, rebound, rigidity - Extremities Exam Extremities exam: Present: normal inspection. Absent: pedal edema - Neurological Exam Neurological exam: Present: alert, oriented X3 - Psychiatric Psychiatric exam: Present: normal affect, normal mood - Skin Skin exam: Present: warm, dry, intact Course Vital Signs Temperature 97.7 F 10/03/18 11:41 Pulse Rate 85 10/03/18 11:41 Respiratory Rate 20 10/03/18 11:41 Blood Pressure 108/85 10/03/18 11:41 O2 Sat by Pulse Oximetry 98 10/03/18 11:41 Temperature 97.7 F 10/03/18 11:41 Pulse Rate 73 10/03/18 13:30 Respiratory Rate 18 10/03/18 13:30 Blood Pressure 110/75 10/03/18 13:30 O2 Sat by Pulse Oximetry 96 10/03/18 13:30 Oxygen Delivery Oxygen Delivery Room Air Chest Pain - MDM Narrative Medical decision making narrative: 62-year-old female with history of ALS presenting with chest pain, worsened today. She states she had severe onset of chest pain on similar to previous area and she is never had cardiac evaluation or pathology. Patient's initial vital signs stable. Pain is not reproducible on exam. Initiated ACS workup including CBC, BMP, EKG, chest x-ray, troponin. First troponin negative, chest x-ray shows no evidence of focal consolidation. EKG unremarkable for acute ST elevation. Otherwise BMP and CBC stable. Patient given one trial of nitroglyc sena with improvement in her pain but not resolution. She has been unable to tolerate repeat dosing of nitroglycerin as her blood pressure dropped to 90s systolic even after 1L fluid bolus. 325 mg aspirin given. Discussed the case with on-call hospitalist, Dr. Dominguez who agrees with plan for admission. Patient agrees with and understands course of treatment plan including plan for admission. All questions answered. - Medical Records Medical records reviewed: Yes I reviewed the patient's medical records. - Lab Data Lab results reviewed: Yes I reviewed the patient's lab results. Result diagrams: 10/03/18 12:12 10/03/18 12:12 Lab Results 10/03/18 10/03/18 10/03/18 Range/Units 12:12 12:12 12:12 WBC 5.4 (4.3-11.1) K/mcL RBC 4.36 (3.82-4.97) M/mcL Hgb 13.1 (11.5-15.4) g/dL Hct 39.7 (35.3-44.9) % MCV 91.1 (83.0-100.0) fL MCH 30.0 (28.0-33.3) pg MCHC 33.0 (31.6-35.5) g/dL RDW 13.6 (11.5-14.5) % Plt Count 172 (140-400) K/mcL MPV 10.5 (9.4-12.4) fL Immature Gran % 0.2 (0-4) % Seg Neutrophils % 55.7 % Lymphocytes % 31.7 % Monocytes % 6.9 % Eosinophils % 4.8 % Basophils % 0.7 % Neutrophils # 3.0 (1.6-8.9) K/mcL Lymphocytes # 1.7 (0.6-4.6) K/mcL Monocytes # 0.4 (0.0-1.3) K/mcL Eosinophils # 0.3 (0.0-0.6) K/mcL Basophils # 0.0 (0.0-0.2) K/mcL APTT 35.7 (26.0-36.0) Seconds Sodium 138 (136-145) mEq/L Potassium 4.1 (3.5-5.1) mEq/L Chloride 105 (98-107) mEq/L Carbon Dioxide 23 (23-29) mEq/L BUN 19 (8-23) mg/dL Creatinine 0.54 L (0.60-1.20) mg/dL Est GFR ( Amer) > 60 (> 60) Est GFR (Non-Af Amer) > 60 (> 60) BUN/Creatinine Ratio 35 H (6-26) Glucose 89 (70-105) mg/dL Calculated Osmolality 288 (280-300) Calcium 9.2 (8.6-10.3) mg/dL Magnesium 2.1 (1.6-2.6) mg/dL Troponin I 0.03 (< 0.04) ng/mL TSH 3.214 (0.340-5.600) mcIU/mL - Radiology Data Radiology results reviewed: Yes I reviewed the patient's radiology results. Chest X-Ray 10/03/18 11:55 IMPRESSION: No acute process. D/ / Igor Boykin MD / Igor Boykin MD Interpreting Provider: Igor Boykin MD - EKG Data EKG attestation: Yes I reviewed and interpreted this EKG. EKG results narrative: Normal sinus rhythm rate of 85. Normal axis. NH 166, QRS 107, QTC 397, QTC 473. No evidence of ST elevation. When compared with prior from 05/07/17 there are no significant changes. Heart Score - Score History: Moderately Suspicious EKG: Normal Age: 45-65 Risk Factors: No risk factors known Troponin: 1-3x normal limit HEART Score Total: 3
[2018-10-03] MEDS ORDERED: 0.9 % Sodium Chloride 1,000 ML IVC ONE (13:37)
[2018-10-03] MEDS ORDERED: traMADol 50 MG TABLET PO PRN (16:56)
[2018-10-03] MEDS ORDERED: Acetaminophen 325 MG TABLET PO PRN (16:56)
[2018-10-03] MEDS ORDERED: Naloxone 0.4 MG/ML INJ IVP PRN (16:56)
--- NOTE | 2018-10-03 17:02 | Internal Med History&Physical ---
Date of Encounter: 10/03/18 Time of Encounter: 17:00 Internal Medicine - H&P: HPI Admitted From: Home Plans for Post Hospital Care: Home History of present illness: Ms. Schwartz is a 62-year-old female with history of ALS who presents the emergency department with complaints of chest pain. She states the pain has been ongoing but intermittent over the past 2 weeks. Yesterday she experienced a significant worsening of her pain so painful that she fell over to the floor. During her episode of pain she developed diaphoresis and shortness of breath. The pain continues and she describes it as a pressure in the center for chest. It does not radiate. She has not found anything to alleviate or worsen her symptoms. She had a heart cath about 15 years but o blockage was found per pt and family. She was started on metoprolol ever since. She does have a history of GERD but denies this feeling similar. Otherwise does have dysphasia. She denies any fever, chills, nausea, vomiting, diarrhea, dysuria, hematuria, abdominal pain, back pain, visual changes. She is otherwise very active and able to walk with a cane without problem. At the ED, patient vital signs were stable, labs were unremarkable including a negative troponin, chest x-ray no acute changes, EKG no acute ST-T change. Patient's symptoms are concerning for ACS, she will be admitted for further evaluation and treatment. Code status discussed with pt and family, they wish full code. Past Med Surg Social Fam HX - Past Medical History Medical history: hypertension, kidney stones, other Additional medical history: ALS. tachycardia. clean heart cath Psychiatric history: no psych history - Past Surgical History Surgical History: appendectomy, cholecystectomy, hysterectomy, other Additional surgical history: right wrist, skin cancer removed - Social History Smoking Status: Never smoker Smokeless Tobacco Status: No Alcohol use: none Drug use: none - Family History Mother Living Status: Still Living Father Living Status: Still Living Hx Family Respiratory Disorders: Yes (COPD) Internal Medicine - H&P: Meds Docusate [Colace] 100 mg PO DAILY PRN 05/07/17 [History] Metoprolol XL (24 HR) Succ [Toprol Xl] 12.5 mg PO DAILY 05/07/17 [History] Oxybutynin [Ditropan] 5 mg PO TID 05/07/17 [History] Riluzole [Rilutek] 50 mg PO BID 05/07/17 [History] Acetaminophen [Tylenol] 500 mg PO Q6HR PRN #50 tablet 05/10/17 [Rx] Ibuprofen [Motrin] 600 mg PO Q8HR PRN #40 tab 05/10/17 [Rx] Allergy/AdvReac Type Severity Reaction Status Date / Time No Known Allergies Allergy Verified 05/07/17 18:29 All Systems PM: A 10-system review of systems was performed and is negative for pertinent findings except as documented above in the HPI. Review of systems: REVIEW OF SYSTEMS: CONSTITUTIONAL: No weight loss, fever, chills, weakness or fatigue. HEENT: Eyes: No visual loss, blurred vision, double vision or yellow sclerae. Ears, Nose, Throat: No hearing loss, sneezing, congestion, runny nose or sore throat. SKIN: No rash or itching. CARDIOVASCULAR: see HPI. RESPIRATORY: No shortness of breath, cough or sputum. GASTROINTESTINAL: No anorexia, nausea, vomiting or diarrhea. No abdominal pain or blood. GENITOURINARY: No dysuria, urgency, or frequency. NEUROLOGICAL: No headache, dizziness, syncope, paralysis, ataxia, numbness or tingling in the extremities. No change in bowel or bladder control. MUSCULOSKELETAL: No muscle, back pain, joint pain or stiffness. HEMATOLOGIC: No anemia, bleeding or bruising. LYMPHATICS: No enlarged nodes. No history of splenectomy. PSYCHIATRIC: No history of depression or anxiety. ENDOCRINOLOGIC: No reports of sweating, cold or heat intolerance. No polyuria or polydipsia. - Constitutional Vitals: Temp Pulse Resp BP Pulse Ox 98.2 F 76 15 115/75 96 10/03/18 16:38 10/03/18 16:38 10/03/18 16:38 10/03/18 16:38 10/03/18 16:38 General appearance: Present: cooperative, A&O X 3, answers questions ap propriately Exam: PHYSICAL EXAMINATION: GENERAL APPEARANCE: The patient is alert, oriented and in no acute distress. HEENT: Head is normocephalic. The sinuses are nontender. Pupils are equal and reactive. The nares are patent. Oropharynx clear without lesions. NECK: Supple without lymphadenopathy. HEART: Regular rate and rhythm. LUNGS: No crackles or wheezes are heard. ABDOMEN: Soft, nontender, nondistended with good bowel sounds heard. Inguinal area is normal. EXTREMITIES: Without cyanosis, clubbing or edema. NEUROLOGICAL: Gross nonfocal. SKIN: Warm and dry without any rash. Internal Med - H&P Results - Labs CBC & Chem 7: 10/03/18 12:12 10/03/18 12:12 Labs: Short CBC 10/03/18 Range/Units 12:12 WBC 5.4 (4.3-11.1) K/mcL Hgb 13.1 (11.5-15.4) g/dL Hct 39.7 (35.3-44.9) % Plt Count 172 (140-400) K/mcL Neutrophils # 3.0 (1.6-8.9) K/mcL BMP 10/03/18 12:12 Sodium 138 Potassium 4.1 Chloride 105 Carbon Dioxide 23 BUN 19 Creatinine 0.54 L Glucose 89 Calcium 9.2 Cardiac Enzymes 10/03/18 Range/Units 12:12 Troponin I 0.03 (< 0.04) ng/mL - Impressions ITS Impressions Chest X-Ray 10/03/18 11:55 IMPRESSION: No acute process. D/ / Igor Boykin MD / Igor Boykin MD Interpreting Provider: Igor Boykin MD - Assessment and plan (1) Chest pain Current Visit: Yes Status: Acute Assessment and plan: 62 year old female with CV risk factor of HTN presented with typical chest pain. 1st trop, ekg, cxr unrevealing. ECHO and stress test ordered. Nitro PRN, tele, EKG, and serial trops. Qualifiers: Chest pain type: other chest pain Qualified Code(s): R07.89 - Other chest pain; R07.8 - Other chest pain (2) ALS (amyotrophic lateral sclerosis) Current Visit: No Status: Chronic Assessment and plan: continue home meds. (3) HTN (hypertension) Current Visit: No Status: Chronic Assessment and plan: BP controlled. continue home meds. Qualifiers: Hypertension type: essential hypertension Qualified Code(s): I10 - Essential (primary) hypertension (4) DVT prophylaxis Current Visit: Yes Status: Acute Assessment and plan: heparin sq. - Time Spent With Patient Total time spent is greater than 50% in coordination of care (as documented) at patient's floor/unit and/or counseling patient: Greater than 35 minutes
[2018-10-03] MEDS: *HR* Heparin 5,000 UNIT/ML VIAL SQ SCH (17:40)
[2018-10-03] MEDS ORDERED: Nitroglycerin 0.4 MG TAB.SUBL SL PRN (18:27)
[2018-10-03] MEDS: (Riluzole [Rilutek] 50 MG) PO SCH (22:07)
[2018-10-04 01:19] LABS: Basophils % 0.6 %; Eosinophils # 0.2 K/mcL (0.0-0.6); Eosinophils % 4.5 %; Hematocrit 33.6 % (35.3-44.9); Immature Granulocytes % 0.2 % (0-4); Lymphocytes # 1.8 K/mcL (0.6-4.6); Lymphocytes % 33.6 %; Mean Corpuscular HGB Conc 32.4 g/dL (31.6-35.5); Mean Corpuscular Hemoglobin 29.6 pg (28.0-33.3); Mean Corpuscular Volume 91.3 fL (83.0-100.0); Mean Platelet Volume 10.7 fL (9.4-12.4); Monocytes # 0.4 K/mcL (0.0-1.3); Monocytes % 7.1 %; Neutrophils # 2.9 K/mcL (1.6-8.9); Platelet Count 162 K/mcL (140-400); Red Blood Count 3.68 M/mcL (3.82-4.97)
[2018-10-04 01:31] LABS: Hemoglobin 10.9 g/dL (11.5-15.4)
[2018-10-04 01:40] LABS: Alanine Aminotransferase 28 Units/L (7-52); Albumin 3.5 g/dL (3.5-5.7); Albumin/Globulin Ratio 1.5 (1.1-2.2); Alkaline Phosphatase 97 Units/L (34-104); Aspartate Amino Transferase 25 Units/L (13-39); BUN/Creatinine Ratio 37 (6-26); Bilirubin,Total 1.3 mg/dL (0.3-1.0); Blood Urea Nitrogen 19 mg/dL (8-23); Calcium 8.6 mg/dL (8.6-10.3); Carbon Dioxide 24 mEq/L (23-29); Chloride 110 mEq/L (98-107); Chol/HDL Ratio 5.2 (0-4.9); Cholesterol 167 mg/dL (< 200); Globulin 2.4 g/dL (2.4-3.5); Glucose 104 mg/dL (70-105); HDL Cholesterol 32 mg/dL (40-59); LDL Cholesterol,Calculated 103 mg/dL (0-99); Osmolality,Calculated 293 (280-300); Potassium 3.7 mEq/L (3.5-5.1); Sodium 140 mEq/L (136-145); Total Protein 5.9 g/dL (6.4-8.9); Triglycerides 162 mg/dL (< 150); eGFR For Non-African Americans > 60 (> 60)
[2018-10-04] MEDS: *HR* Heparin 5,000 UNIT/ML VIAL SQ SCH (05:56)
[2018-10-04] MEDS ORDERED: Regadenoson 0.4 MG/5 ML SYRINGE IVP ONE (06:01)
[2018-10-04] MEDS ORDERED: Metoprolol XL (24 HR) Succ 25 MG TAB.ER.24H PO SCH (09:00)
[2018-10-04 10:47] VITALS: BP 138/83
[2018-10-04] MEDS: (Riluzole [Rilutek] 50 MG) PO SCH (11:13)
--- NOTE | 2018-10-04 14:49 | Discharge Summary ---
- NOTES TO OUTPATIENT PROVIDER Notes to Outpatient Provider: Ms Schwartz was admitted for chest pain. Stress and echo negative. She is to follow up outpatient. Orders not resulted at time of discharge: Pending orders 10/03/18 11:39 EKG [ECG 12 lead ECG] [ECG] Stat 10/03/18 16:59 NM ronn perf SPECT multi [NM] Routine Date of Encounter: 10/04/18 Time of Encounter: 14:46 - Discharge Diagnosis (1) ALS (amyotrophic lateral sclerosis) Priority: Secondary Status: Chronic (2) HTN (hypertension) Priority: Secondary Status: Chronic Qualifiers: Hypertension type: essential hypertension Qualified Code(s): I10 - Essential (primary) hypertension (3) Chest pain Priority: Primary Status: Resolved Qualifiers: Chest pain type: chest pain due to myocardial ischemia Ischemic chest pain type: stable angina pectoris Qualified Code(s): I20.8 - Other forms of angina pectoris (4) Dysphagia Priority: Secondary Status: Chronic Qualifiers: Dysphagia type: oropharyngeal phase Qualified Code(s): R13.12 - Dysphagia, oropharyngeal phase Hospital course: Ms. Schwartz is a 62 year old female with hx of ALS presented to ED with chest pain. She was placed in observation. Ms Schwartz has had about 2 weeks of chest pain. Yesterday symptoms worsened and were associated with diaphoresis and nausea. She presented to ED and was placed in observation. This AM she underwent stress which was negative for ischemia. Echo did not show wall motion abnormality. She still has some discomfort but not as bad as before. She is afebrile and wishes to go home. Her , herself and I discussed that perhaps this is her ALS and muscle pain or esophageal spasm that caused the issue. She is to follow up in [place]. Discharge discussed with: patient, family - Time Spent with Patient Total time spent providing and/or coordinating discharge services: - Discharge Medications Home Medications: RX: Docusate [Colace] 100 mg PO DAILY PRN 05/07/17 [History] RX: Metoprolol XL (24 HR) Succ [Toprol Xl] 12.5 mg PO DAILY 05/07/17 [History] RX: Oxybutynin [Ditropan] 5 mg PO TID 05/07/17 [History] RX: Riluzole [Rilutek] 50 mg PO BID 05/07/17 [History] RX: Acetaminophen [Tylenol] 500 mg PO Q6HR PRN #50 tablet 05/10/17 [Rx] RX: Ibuprofen [Motrin] 600 mg PO Q8HR PRN #40 tab 05/10/17 [Rx] Allergies/Adverse Reactions: Allergy/AdvReac Type Severity Reaction Status Date / Time No Known Allergies Allergy Verified 05/07/17 18:29 Date of admission: 10/03/18 15:40 Primary care physician: Darryl Zimmerman DO Discharging clinician: Jerardo Umaña Anticipated date of discharge: 10/04/18 - Constitutional Vitals: Temp Pulse Resp BP Pulse Ox 97.4 F L 81 18 138/83 96 10/04/18 10:44 10/04/18 10:44 10/04/18 10:44 10/04/18 10:44 10/04/18 10:44 General appearance: Present: cooperative, A&O X 3, answers questions appropriately Exam: See below - Head Head exam: Present: normocephalic - Eye Eye exam: Present: EOMI, conjuntiva pink - ENT ENT exam: Present: mucous membranes moist - Respiratory Respiratory exam: Present: CTAB. Absent: rales, rhonchi, wheezes - Cardiovascular Cardiovascular exam: Present: RRR. Absent: tachycardia - GI/Abdominal GI/Abdominal exam: Present: soft. Absent: tenderness - Extremities Exam Extremities exam: Present: warm. Absent: tenderness - Neurological Exam Neurological exam: Present: alert, oriented X3 - Skin Skin exam: Present: dry, warm - Patient Status Disposition: Home, Self-Care Condition: Good Functional capacity at discharge: uses cane/walker Overall status at discharge: patient is progressing back to baseline - Discharge Instructions Instructions: Chest Pain (DC), Appendicitis (DC), Chronic Hypertension (DC) Follow Up With: Barron Zimmerman DO [Primary Care Provider] - Forms: Inpatient Work/School Release - Diet and Activity Activity: increase activity as tolerated Diet: advance to your usual diet
[2018-10-04] MEDS ORDERED: (Riluzole [Rilutek] 50 MG) PO SCH (21:00)
--- NOTE | 2018-10-05 14:47 | Electrocardiograph Report ---
[place] [id number] Test Date: 2018-10-03 Pat Name: Halie Schwartz Department: EXAMC5 Room: 3B13 Gender: F [employer]: : [id number] Requested By: Lobito Anguiano Order Number: [id number] Reading MD: Enrique Calabrese Measurements Intervals [place] Rate: 85 P: 56 CO: 166 QRS: 4 QRSD: 107 T: 47 QT: 397 QTc: 473 Interpretive Statements Sinus rhythm Abnormal R-wave progression, early transition Electronically Signed On 10-05-2018 14:45:47 EST by Enrique Calabrsee
== END 2018-10-04 16:20 | disposition home or self-care (01) ==
LOC: 3BNU 11:32 → EMEROOARM 11:32 → SUATTDRO 15:40 → 3BNU 16:34
PROVIDERS: ADMIT Internal Medicine; ATTEND Internal Medicine